=== PATIENT | female | born 1955 | race Caucasian/White ===

== ENCOUNTER 2016-04-23 13:16 | Emergency (ER) | payer OTHER ==
[2016-04-23] MEDS ORDERED: KETOROLAC 30 MG/ML VIAL ONE (14:56)
== END 2016-04-23 15:27 | disposition home or self-care (01) ==
LOC: ER 13:16
DX: K02.9 Dental caries, unspecified (principal); F17.290 Nicotine dependence, other tobacco product, uncomplicated
CPT/HCPCS: 96372; 99283; J1885